=== PATIENT | female | born 1985 | race Two or more races ===

== ENCOUNTER 2021-06-25 00:56 | Emergency (ER) | payer OTHER, MEDICAID ==
[~2021-06-25] VITALS: Ht 172.7 cm; Wt 90.7 kg
[~2021-06-25 00:56] MED LIST: CETI10TA2 PO
[2021-06-25 02:32] VITALS: BP 114/77
[2021-06-25] MEDS ORDERED: KETOROLAC TROMETH 30 MG/ML 1ML VIAL IM ONE (03:15)
[2021-06-25] MEDS ORDERED: ACE3T PO (03:43)
[2021-06-25] MEDS ORDERED: CLIN150C PO (03:43)
== END 2021-06-25 04:09 | disposition home or self-care (01) ==
LOC: ER 00:56
DX: L60.0 Ingrowing nail (principal); Z90.89 Acquired absence of other organs; Z79.899 Other long term (current) drug therapy; Z88.1 Allergy status to other antibiotic agents; Z88.2 Allergy status to sulfonamides; Z88.8 Allergy status to other drugs, medicaments and biological substances
CPT/HCPCS: 96372; 99283; J1885